=== PATIENT | female | born 1985 | race Caucasian/White ===

== ENCOUNTER 2016-04-25 12:14 | Emergency (ER) | payer OTHER ==
[~2016-04-25] VITALS: Ht 162.6 cm; Wt 96.8 kg
[~2016-04-25 12:14] MED LIST: CHLORTHALIDONE PO
[2016-04-25 12:42] VITALS: BP 152/67
== END 2016-04-25 12:42 | disposition home or self-care (01) ==
LOC: ED 12:14
DX: O90.89 Other complications of the puerperium, not elsewhere classified (principal); L53.9 Erythematous condition, unspecified